=== PATIENT | male | born 1955 | race Caucasian/White ===

== ENCOUNTER 2020-07-11 15:36 | Emergency (ER) | payer BC, SELFPAY ==
--- NOTE | 2020-07-11 16:14 | ED.GENADULT ---
HPI - General Adult General Chief complaint: Skin/Abscess/Foreign Body Stated complaint: brusing on abdomen Time Seen by Provider: 07/11/20 16:11 Source: patient and RN notes reviewed Mode of arrival: ambulatory Limitations: no limitations History of Present Illness HPI narrative: 64-year-old male presents concern for redness, tenderness, drainage to his left anterior abdominal wall. Reports he is diabetic and injects himself with insulin. Reports several days ago he injected insulin at that site, noticed some mild bruising the next day and the site progressed to be red, tender, warm, mildly swollen with drainage. Reports she has been putting ice on the area. He denies any fever, malaise, sweats, chills. Denies any nausea, vomiting, diarrhea, abdominal pain MD complaint: Skin redness Related Data Home Medications Medication Instructions Recorded Confirmed Humulin 70/30 U-100 Insulin 07/11/20 aspirin [Aspirin Low Dose] 07/11/20 atorvastatin 07/11/20 ezetimibe [Zetia] 10 mg PO DAILY 07/11/20 07/11/20 metoprolol tartrate 25 mg PO DAILY 07/11/20 07/11/20 Allergies Allergy/AdvReac Type Severity Reaction Status Date / Time No Known Allergies Allergy Verified 07/11/20 16:17 Review of Systems Review of Systems: Narrative: CONSTITUTIONAL: Denies malaise, chills, sweats, or fever. CARDIOVASCULAR: Denies chest pain, palpitations, or edema. RESPIRATORY: Denies cough or dyspnea. GASTROINTESTINAL: Denies abdominal pain, nausea, vomiting, diarrhea SKIN: Reports redness, tenderness, drainage to an area on the left sided abdomen MUSCULOSKELETAL: Denies myalgia. All systems reviewed & are unremarkable except as noted in HPI and below PMFSH Comments At time of signature, agree with nursing past medical, surgical, social and family history. There is no relevant family history pertinent to the presenting complaint Exam Narrative: Exam Narrative: GENERAL: Well-appearing, well-nourished, and in no acute distress. HEAD: Normocephalic, atraumatic. EYES: PERRLA, conjunctivae clear ENT: Mucous membranes moist. NECK: Supple. CHEST: No respiratory distress. Speaks in full sentences. HEART: Regular rate and rhythm. ABDOMEN: Soft, nontender, nondistended, normal active bowel sounds, no palpable masses. EXTREMITIES: Normal range of motion. SKIN: Warm, dry, no rash. Apparently 15 cm in diameter area of erythema, induration, warmth, mild tenderness with central pustule noted to the left sided abdomen NEURO: Alert and oriented x3. PSYCH: Normal mood and affect Course Course Emergency Course: Patient is aware of diagnosis, understands and agrees to treatment plan. Anticipatory guidance given. Patient agrees to follow-up as directed and is aware of reasons to seek care at the emergency department. Portions of this record may have been created with voice recognition software Vital Signs Vital signs: Vital Signs Temperature 99.5 F 07/11/20 16:17 Pulse Rate 89 07/11/20 16:17 Respiratory Rate 16 07/11/20 16:17 Blood Pressure 182/81 H 07/11/20 16:17 Pulse Oximetry 100 07/11/20 16:17 Temperature 99.5 F 07/11/20 16:17 Pulse Rate 89 07/11/20 16:17 Respiratory Rate 16 07/11/20 16:17 Blood Pressure 182/81 H 07/11/20 16:17 Pulse Oximetry 100 07/11/20 16:17 Reviewed. Patient has history of hypertension Medical Decision Making MDM Narrative Medical decision making narrative: Exam findings show no acute concerns or changes; patient is non-toxic appearing and is in no distress. Patient is appropriate for outpatient treatment and follow-up. Differential Diagnosis Differential Diagnosis: Cellulitis, abscess, wound Vital Signs Vital Signs: Vital Signs Temperature 99.5 F 07/11/20 16:17 Pulse Rate 89 07/11/20 16:17 Respiratory Rate 16 07/11/20 16:17 Blood Pressure 182/81 H 07/11/20 16:17 Pulse Oximetry 100 07/11/20 16:17 Temperature 99.5 F 07/11/20 16:17 Pulse Rate 89 07/11/2
[2020-07-11 16:17] VITALS: BP 182/81; PULSE 89; RESP 16; TEMP 37.5; O2SAT 100
== END 2020-07-11 16:28 | disposition home or self-care (01) ==
PROVIDERS: Emergency Provider Nurse Practitioner
DX: L03.311 Cellulitis of abdominal wall (principal); E11.9 Type 2 diabetes mellitus without complications; Z79.82 Long term (current) use of aspirin
CPT/HCPCS: 99203; G0463